=== PATIENT | female | born 1975 | race Caucasian/White ===

== ENCOUNTER 2021-02-12 15:14 | Emergency (ER) | payer OTHER, SELFPAY ==
--- NOTE | ~2021-02-12 | CT_ITS ---
EXAMINATION: CT abdomen pelvis wo con DATE: 02/12/2021 16:41 INDICATION: Abdominal pain. Nausea and vomiting. Lactic acidosis. TECHNIQUE: Computed tomography (CT) of the abdomen and pelvis was performed without intravenous contr ast. Automated exposure control and iterative reconstruction technique were employed. The dose-length product was 1031.38 mGy-cm. COMPARISON: None. FINDINGS: The visualized portions of the lung bases demonstrate minimal atelectasis. No pleural effus ion. The heart size is normal. No pericardial effusion. There is a large sliding hiatal hernia. There is diffuse hepatic steatosis. There are changes of cholecystectomy. There is borderline splenomegaly , likely secondary to obesity. The pancreas, adrenal glands, and kidneys are normal. There is no urol ithiasis. There is diverticulosis of the colon without evidence of diverticulitis. The appendix is no rmal. There are no pathologically enlarged lymph nodes. There is no free intraperitoneal fluid. There is a right-sided tubal ligation clip. There is a displaced tubal ligation clip near the rectum. Ther e is a right inguinal hernia containing fat. There is severe lower lumbar spondylosis. IMPRESSION: 1. Diffuse hepatic steatosis. 2. Large sliding hiatal hernia. 3. Right inguinal hernia containing fat. Reviewed, dictated and finalized at location A.
--- NOTE | ~2021-02-12 | CT_ITS ---
EXAMINATION: CT abdomen pelvis w con DATE: 02/12/2021 18:54 INDICATION: Abdominal pain. TECHNIQUE: Computed tomography (CT) of the abdomen and pelvis was performed with 100 mL Omnipaque 350 intravenous contrast. Automated exposure control and iterative reconstruction technique were employe d. The dose-length product was 1057.36 mGy-cm. COMPARISON: CT abdomen and pelvis 4:32 PM FINDINGS: The visualized portions of the lung bases demonstrate minimal atelectasis. No pleural effus ion. The heart size is normal. No pericardial effusion. There is a large sliding hiatal hernia. There is diffuse low-attenuation in the liver. There are changes of cholecystectomy. There is a 7 mm low-a ttenuation lesion in the spleen, likely benign. The pancreas and adrenal glands are normal. Right kid vito demonstrates a striated nephrogram, consistent with pyelonephritis. There are cysts in left kidne y measuring up to 5 mm. There is a right tubal ligation clip in expected position. The left tubal lig ation clip is displaced. There is diverticulosis of the colon without evidence of diverticulitis. The appendix is normal. There is a splenorenal portacaval shunt. There is thrombus in left ovarian vein, which is expanded. There is a right inguinal hernia containing fat. There is trace ascites in the hi atal hernia. There are no pathologically enlarged lymph nodes. There is severe lower lumbar spondylos is. IMPRESSION: 1. Right-sided pyelonephritis. 2. Acute thrombosis of left ovarian vein. 3. Diffuse low attenuation in the liver, likely steatosis. 4. Splenorenal portacaval shunt, consistent with portal venous hypertension. 5. Large sliding hiatal hernia. Reviewed, dictated and finalized at location A.
[2021-02-12 15:14] VITALS: BP 96/68; PULSE 92; RESP 20; TEMP 36.3; O2SAT 100
--- NOTE | 2021-02-12 15:40 | ED.GENADULT ---
HPI - General Adult General Chief complaint: Nausea/Vomiting/Diarrhea Stated complaint: AMB Source: patient and EMS Mode of arrival: ambulatory Limitations: no limitations History of Present Illness HPI narrative: Elma is a 45F with a pmh of anxiety/depression, asthma and a previous cholecystectomy that presented to the ED via EMS with abdominal pain. She woke up with diffuse cramping abdominal pain and nausea. She has had many episodes of non-bilious non-bloody vomiting. She has not had a BM for 2 days when she is usually very regular. She reports a low grade fever of 99. She denies KONG, CP, SOB, diarrhea and syncope. Per EMS she was lying on her front porch. Related Data Home Medications Medication Instructions Recorded Confirmed albuterol sulfate 2 puff INHALATION PRN 02/12/21 02/12/21 omeprazole 20 mg PO DAILY 02/12/21 02/12/21 sertraline 50 mg PO DAILY 02/12/21 02/12/21 trazodone 100 mg PO HS 02/12/21 02/12/21 Allergies Allergy/AdvReac Type Severity Reaction Status Date / Time Penicillins Allergy Unknown Verified 02/12/21 15:24 Sulfa (Sulfonamide Allergy Unknown Verified 02/12/21 15:24 Antibiotics) Review of Systems Constitutional: Constitutional: Reports fever(s) and Reports weakness Eyes: Eyes: Reports no additional eye complaints ENT: Reports system reviewed and no additional complaints, except as documented Cardiovascular: Cardiovascular: Reports no additional cardiovascular complaints Respiratory: Respiratory: Reports no additional respiratory complaints Gastrointestinal: Gastrointestinal: Reports as per HPI Genitourinary: Genitourinary: Reports no additional female genitourinary complaints, Denies hematuria and Denies dysuria Musculoskeletal: Musculoskeletal: Reports no additional musculoskeletal complaints Integumentary/Breasts: Skin/Breast: Reports system reviewed and no additional complaints, except as docu Neurologic: Reports system reviewed and no additional complaints, except as documented Psychiatric: Psychiatric: Reports no additional psychiatric complaints Endocrine: Endocrine: Reports no additional endocrine complaints Hematologic/Lymphatic: Hematologic/Lymphatic: Reports no additional hematologic/lymphatic complaints Allergic/Immunologic: Allergic/Immunologic: Reports no additional allergic/immunologic complaints Exam Const: General: alert Orientation/consciousness: patient oriented x3 Limitations: No altered mental status Other: In mild distress curled up in the position HENMT: Head: normal to inspection Other: atraumatic Eyes: Conjunctivae: conjunctivae normal Pupils: Equal, round and reactive pupils present Neck: Neck: normal visual inspection Chest: Chest palpation & inspection: normal inspection of the chest Resp: Effort & Inspection: normal respiratory effort, not labored and no retractions Auscultation: clear to auscultation bilaterally Cardio: Rate: regular rate Rhythm: regular rhythm Heart sounds: no murmurs GI: Other: Diffusely TTP, +obturator and +psoas sign. No rebound tenderness. No guarding. Negative Bush sign. Slow bowel sounds : General: Yes no CVA tenderness Back/Spine/Pelvis: Back: no CVA tenderness Skin: General skin exam: normal color Rashes: no rashes Other: Multiple linear scars on the left wrist Neuro: General: patient oriented x3, moves all extremities and CN's II-XI intact bilaterally Extrem: General: normal to inspection Psych: Appearance: disheveled Affect: Anxious affect present Course Course Emergency Course: Elma was evaluated. Ordered labs, CT, zofran, fluids and fentanyl for pain. Labs were very concerning with a slight leukocytosis at 12.5, significant anemia at 8.2, KESHAV with Cr. of 1.97, CRP of >25, AST of 128 and Bilirubin of 2.0, and lactic acid of 7.3. EXAMINATION: CT abdomen pelvis wo con DATE: 02/12/2021 16:41 INDICATION: Abdominal pain. Nausea and vomiting. Lactic acidosis. TECHNIQUE: Co
[2021-02-12] MEDS: ONDANSETRON INJ 4 MG/2 ML VIAL IV PUSH (15:44)
[2021-02-12] MEDS: LACTATED RINGERS 1,000 ML 999 ML IV CONT ×3 (15:44→20:00)
[2021-02-12] MEDS: fentaNYL CITRATE INJ (*CRX) 100 MCG/2 ML VIAL 25 MCG IV PUSH (15:46)
[2021-02-12 15:55] LABS: Hemoglobin 8.2 g/dL (12.0-15.0); Immature Platelet Fraction Pct 8.7 % (1.0-7.0); Mean Corpuscular HGB Conc 28.3 g/dL (32.0-36.0); Mean Corpuscular Hemoglobin 21.4 pg (27.0-31.0); Mean Corpuscular Volume 75.5 fL (78.0-102.0); Platelet Count Result 97 K/mm3 (150-420); Red Blood Count 3.84 M/mm3 (4.20-5.40); Red Cell Distribution Width 21.3 % (11.6-14.4); White Blood Count 12.5 K/mm3 (4.8-10.8)
[2021-02-12 16:00] LABS: INR 1.3; Prothrombin Time 13.9 Seconds (9.50-12.10)
[2021-02-12 16:07] LABS: Lactic Acid Reflex 7.3 mmol/L (0.4-2.0)
[2021-02-12 16:12] LABS: Alanine Aminotransferase 57 U/L (14-59); Albumin Level 2.5 g/dL (3.4-5.0); Alkaline Phosphatase 110 U/L (46-116); Anion Gap 18 mmol/L (8-16); Aspartate Amino Transferase 128 U/L (15-37); Blood Urea Nitrogen 38 mg/dL (7-18); Calcium 8.8 mg/dL (8.5-10.1); Carbon Dioxide 19 mmol/L (21-32); Chloride 99 mmol/L (98-108); Estimated CRCL calculation 34 ml/min; Estimated Glomerular Filt Rate 27; Glucose 155 mg/dL (70-99); Lipase 18 U/L (73-393); NT Pro B Type Natriuretic Pept 462 pg/mL (0-125); Osmolality Calculated 294 mOsm/kg (285-295); Potassium 3.2 mmol/L (3.5-5.1); Sodium 136 mmol/L (136-145); Total Protein 5.9 g/dL (6.4-8.2); Troponin I < 4.0 ng/L (0.00-60.4)
[2021-02-12 16:14] LABS: Band Neutrophils Percent 7 % (0-6); Neutrophils Absolute Manual 11.12 K/mm3 (1.7-7.2); Neutrophils Percent Manual 82 % (46-73); Total Cells Counted 100
[2021-02-12 16:15] LABS: Basophils Percent Manual 0 % (0-1); Eosinophils Percent Manual 0 % (1-6); Hypochromasia 2+ (NORMAL); Lymphocytes Absolute Manual 0.37 K/mm3 (1.1-4.5); Lymphocytes Percent Manual 3 % (18-44); Monocytes Percent Manual 8 % (3-9); Platelet Estimate Decreased (Adequate)
[2021-02-12 16:20] LABS: CRP > 25.0 mg/dL (0.0-0.9)
[2021-02-12] MEDS: fentaNYL CITRATE INJ (*CRX) 100 MCG/2 ML VIAL 50 MCG IV PUSH ×2 (16:31→20:00)
[2021-02-12 16:52] LABS: Add Urine Microscopic? YES; Appearance Urine Clear (Clear); Bilirubin Urine Negative (Negative); Blood Urine Negative (Negative); Color Urine Yellow (Yellow); Glucose Urine UA Negative (Negative); Ketones Urine Trace (Negative); Leukocyte Esterase Ur 1+ (Negative); Nitrate Urine Negative (Negative); Protein Urine 1+ (Negative); pH Urine 5.5 (5.0-8.0)
[2021-02-12 16:58] LABS: Bacteria Urine 1+ /hpf; RBC Urine 0-2 /hpf (0-2); Squamous Epithelial Cell Urine Moderate /hpf (Few); WBC Urine 31-50 /hpf (0-3)
[2021-02-12 17:00] LABS: Amphetamine Screen Urine Negative (Negative); Barbiturate Screen Urine Negative (Negative); Benzodiazepines Screen Urine Negative (Negative); Cannabinoid Screen Urine Negative (Negative); Cocaine Screen Urine Negative (Negative); Methadone Screen Urine Negative (Negative); Opiate Screen Urine Negative (Negative); Phencyclidine Screen Urine Negative (Negative)
[2021-02-12 17:49] LABS: Anion Gap 15 mmol/L (8-16); Blood Urea Nitrogen 33 mg/dL (7-18); Calcium 8.5 mg/dL (8.5-10.1); Carbon Dioxide 21 mmol/L (21-32); Chloride 101 mmol/L (98-108); Estimated CRCL calculation 39 ml/min; Estimated Glomerular Filt Rate 32; Glucose 115 mg/dL (70-99); Osmolality Calculated 292 mOsm/kg (285-295); Potassium 3.2 mmol/L (3.5-5.1); Sodium 137 mmol/L (136-145)
[2021-02-12 17:59] LABS: Lactic Acid 6.1 mmol/L (0.4-2.0)
[2021-02-12] MEDS: HEPARIN SOD/D5W 100 UNITS/ML 25,000 UNITS/250 ML BAG 15 UNITS IV CONT (20:00)
[2021-02-12 20:36] VITALS: BP 110/58; PULSE 94; RESP 20; TEMP 36.9; O2SAT 94
[2021-02-12 20:59] LABS: Appearance Urine Clear (Clear); Bilirubin Urine Negative (Negative); Color Urine Yellow (Yellow); Glucose Urine UA Negative (Negative); Ketones Urine Negative (Negative); Leukocyte Esterase Ur Negative LEU/UL (Negative); Nitrate Urine Negative (Negative); Protein Urine 1+ (Negative); Specific Grav Ur <= 1.005 (1.010-1.020); pH Urine 6.5 (5.0-8.0)
[2021-02-12 21:05] LABS: Add Urine Microscopic? YES; Bacteria Urine Trace /hpf; Blood Urine Trace (Negative); RBC Urine 0-2 /hpf (0-2); Squamous Epithelial Cell Urine Rare /hpf (Few)
--- NOTE | 2021-02-12 21:19 | PC.NURSE ---
2105 gbaas here , report to florencio. pt loaded to ems cot. denies nausea and rates pain 3/10 at this time.
== END 2021-02-12 21:15 | disposition short-term general hospital (02) ==
PROVIDERS: Emergency Provider Family Medicine
DX: A41.9 Sepsis, unspecified organism (principal); I82.890 Acute embolism and thrombosis of other specified veins
CPT/HCPCS: 36415; 74176; 74177; 80048; 80053; 80307; 81001; 83605; 83690; 83880; 84484; 85025; 85055; 85610; 86140; 87040; 87077; 87186; 96361; 96365; 96367; 96375; 96376; 99285; J1644; J2405; J2543; J3010; J7120; Q9967

== ENCOUNTER 2021-04-03 20:20 | Emergency (ER) | payer OTHER, SELFPAY ==
--- NOTE | 2021-04-03 20:29 | ECG_ITS ---
Measurements Intervals [place] Rate: 138 P: 62 NC: 144 QRS: 55 QRSD: 81 T: 54 QT: 313 QTc: 475 Interpretive Statements SINUS TACHYCARDIA DELAYED PRECORDIAL R/S TRANSITION BORDERLINE ST-T WAVE ABNORMALITY- ANTEROLAT/INF LEADS BASELINE ARTIFACT- I, II, III, AVR, AVL, AVF, V4-V6 ABNORMAL ECG Electronically Signed On 04-04-2021 6:11:49 CDT by Rahul Abraham D.O.
[2021-04-03 20:32] VITALS: BP 140/85; PULSE 144; RESP 20; TEMP 36.7; O2SAT 98
--- NOTE | 2021-04-03 20:44 | ED.PSYCH ---
HPI - Psych General Chief Complaint: Psychiatric Symptoms <Tejinder Lawrence MD - Last Filed: 04/03/21 23:08> Stated Complaint: AMB <Tejinder Lawrence MD - Last Filed: 04/03/21 23:08> Source: patient and EMS <Tejinder Lawrence MD - Last Filed: 04/03/21 23:08> Mode of arrival: EMS <Tejinder Lawrence MD - Last Filed: 04/03/21 23:08> Limitations: no limitations <Tejinder Lawrence MD - Last Filed: 04/03/21 23:08> History of Present Illness HPI Narrative: this is 46-year-old female presents via EMS after she got into an argument with her boyfriend and over the fact that her daughter has been throwing trash in her yd and she was worry about getting evicted from her home, the patient stated that she wanted to kill herself and not certain who called but someone in the family or friend called EMS that brought patient to the emergency department. Patient has a history of asthma, has a history of depression, and did state that she wanted to kill herself but she denies that now and states that she currently does not want to cause self-harm or harm anyone else with no apparent suicide plan. <Tejinder Lawrence MD - Last Filed: 04/03/21 23:08> MD complaint: feels depressed and other ( stated she wanted to kill herself) <Tejinder Lawrence MD - Last Filed: 04/03/21 23:08> Onset (ago): hour(s) <Tejinder Lawrence MD - Last Filed: 04/03/21 23:08> Duration: resolved prior to arrival <Tejinder Lawrence MD - Last Filed: 04/03/21 23:08> History of same: Yes ( as a child according to patient) <Tejinder Lawrence MD - Last Filed: 04/03/21 23:08> Relieving factors: none <Tejinder Lawrence MD - Last Filed: 04/03/21 23:08> Exacerbating factors: none <Tejinder Lawrence MD - Last Filed: 04/03/21 23:08> Context: recent alcohol abuse <Tejinder Lawrence MD - Last Filed: 04/03/21 23:08> Associated psychiatric symptoms: depression <Tejinder Lawrence MD - Last Filed: 04/03/21 23:08> Associated symptoms: denies other symptoms <Tejinder Lawrence MD - Last Filed: 04/03/21 23:08> Treatments prior to arrival: none <Tejinder Lawrence MD - Last Filed: 04/03/21 23:08> If self harm: admits thoughts of self harm <Tejinder Lawrence MD - Last Filed: 04/03/21 23:08> Related Data Home Medications: Home Medications Medication Instructions Recorded Confirmed albuterol sulfate 2 puff INHALATION PRN 02/12/21 04/03/21 omeprazole 20 mg PO DAILY 02/12/21 04/03/21 sertraline 50 mg PO DAILY 02/12/21 04/03/21 trazodone 100 mg PO HS 02/12/21 04/03/21 ferrous sulfate [iron] 325 mg PO DAILY 04/03/21 04/03/21 <Tejinder Lawrence MD - Last Filed: 04/03/21 23:08> Allergies/Adverse Reactions: Allergies Allergy/AdvReac Type Severity Reaction Status Date / Time cyclobenzaprine Allergy Unknown Verified 04/03/21 20:42 [From Flexeril] Penicillins Allergy Unknown Verified 04/03/21 20:42 Sulfa (Sulfonamide Allergy Unknown Verified 04/03/21 20:42 Antibiotics) <Tejinder Lawrence MD - Last Filed: 04/03/21 23:08> Review of Systems Review of Systems: All systems reviewed & are unremarkable except as noted in HPI and below <Tejinder Lawrence MD - Last Filed: 04/03/21 23:08> PMFSH Past Medical History Medical History: Medical History Depression <Tejinder Lawrence MD - Last Filed: 04/03/21 23:08> Social History Social History: Social History Gender identity (if verbalized by the patient): Female <Tejinder Lawrence MD - Last Filed: 04/03/21 23:08> Exam Const: General: no acute distress and alert <Tejinder Lawrence MD - Last Filed: 04/03/21 23:08> Orientation/consciousness: patient oriented x3 <Tejinder Lawrence MD - Last Filed: 04/03/21 23:08> HENMT: Head: normal to inspection <Tejinder Lawrence MD - L
[2021-04-03 20:49] LABS: Hematocrit 37.2 % (35.0-49.0); Hemoglobin 11.2 g/dL (12.0-15.0); Mean Corpuscular HGB Conc 30.1 g/dL (32.0-36.0); Mean Corpuscular Hemoglobin 24.8 pg (27.0-31.0); Mean Corpuscular Volume 82.5 fL (78.0-102.0); Mean Platelet Volume 10.2 fl (9.2-11.8); Platelet Count Result 310 K/mm3 (150-420); Red Blood Count 4.51 M/mm3 (4.20-5.40); Red Cell Distribution Width 18.8 % (11.6-14.4); White Blood Count 6.8 K/mm3 (4.8-10.8)
[2021-04-03 20:50] LABS: Basophils Percent Auto 0.4 % (0.0-1.0); Eosinophils Absolute Auto 0.12 K/mm3 (0.02-0.50); Eosinophils Percent Auto 1.8 % (1.0-6.0); Immature Granulocyte Absolute 0.02 K/mm3 (0.00-0.00); Immature Granulocyte Percent A 0.3 % (0.0-0.0); Lymphocytes Percent Auto 35.3 % (18.0-42.0); Monocytes Absolute Auto 0.64 K/mm3 (0.10-0.90); Monocytes Percent Auto 9.4 % (2.0-11.0); Neutrophils Absolute Auto 3.6 K/mm3 (1.7-7.2); Neutrophils Percent Auto 52.8 % (50.0-70.0)
[2021-04-03 20:51] LABS: Basophils Absolute Auto 0.03 K/mm3 (0.00-0.10)
[2021-04-03 21:41] LABS: Salicylate 3.1 mg/dL (2.8-20.0); Thyroid Stimulating Hormone 1.91 uIU/mL (0.36-3.74)
[2021-04-03 21:44] LABS: Acetaminophen 0 ug/mL (10-30)
[2021-04-03 21:45] LABS: Ethanol 261 mg/dL (0-6)
[2021-04-03 21:46] LABS: Anion Gap 22 mmol/L (8-16); Blood Urea Nitrogen 10 mg/dL (7-18); Calcium 8.8 mg/dL (8.5-10.1); Carbon Dioxide 17 mmol/L (21-32); Chloride 104 mmol/L (98-108); Estimated CRCL calculation 67 ml/min; Estimated Glomerular Filt Rate > 60; Glucose 112 mg/dL (70-99); Osmolality Calculated 296 mOsm/kg (285-295); Potassium 3.4 mmol/L (3.5-5.1); Sodium 143 mmol/L (136-145)
[2021-04-03 21:47] LABS: Amphetamine Screen Urine Negative (Negative); Barbiturate Screen Urine Negative (Negative); Benzodiazepines Screen Urine Negative (Negative); Cocaine Screen Urine Negative (Negative); Methadone Screen Urine Negative (Negative); Opiate Screen Urine Negative (Negative); Phencyclidine Screen Urine Negative (Negative)
[2021-04-03 21:47] LABS: Alanine Aminotransferase 29 U/L (14-59); Albumin Level 3.5 g/dL (3.4-5.0); Alkaline Phosphatase 97 U/L (46-116); Aspartate Amino Transferase 25 U/L (15-37); Bilirubin,Total 0.4 mg/dL (0.00-1.00); Total Protein 7.2 g/dL (6.4-8.2)
[2021-04-03 21:48] LABS: Cannabinoid Screen Urine Negative (Negative)
--- NOTE | 2021-04-03 21:52 | PC.NURSE ---
2109 PT ELOPED FROM ROOM [employer] CALLED AND PT RETURNED TO ROOM AT 2119
[2021-04-03 21:59] LABS: Appearance Urine Clear (Clear); Color Urine Light Yellow (Yellow); Protein Urine 1+ (Negative)
[2021-04-03 22:00] LABS: Bilirubin Urine Negative (Negative); Blood Urine Negative (Negative); Glucose Urine UA Negative (Negative); Ketones Urine Negative (Negative); Nitrate Urine Negative (Negative)
[2021-04-03 22:01] LABS: Add Urine Microscopic? YES; Leukocyte Esterase Ur Negative (Negative); RBC Urine 0-2 /hpf (0-2); Urobilinogen Urine 0.2 mg/dL (0.2-1.0); WBC Urine 0-3 /hpf (0-3)
[2021-04-03 22:02] LABS: Bacteria Urine Trace /hpf; Squamous Epithelial Cell Urine Few /hpf (Few)
--- NOTE | 2021-04-03 23:48 | PC.NURSE ---
3239 NURSE TO NURSE REPORT GIVEN TO CHAN DURAN PT TO GO TO FLOOR FOR ER HOLD LABS TO BE REDRAWN AT 0800
--- NOTE | 2021-04-04 00:05 | ADMGEN ---
Addendum entered by Gale Pelayo LPN 04/04/21 00:22: Room cleared and safety risk items removed. Original Note: This patient, Elma Foote, was admitted to [facility] at 0000 for suicidal ideation. Patient oriented to hospital policies and general routines including ID bracelet, bed and alarms, visiting hours, pain management, procedures, bathroom and other care routines, personal items, smoking policy, room service/diet, and visiting hours. Patient states no complaints of pain or discomfort,states she is just tired. Pt states she has calmed down and does not report suicidal thoughts at this time. Information on how to activate the Rapid Response Team has been discussed. Patient are encouraged to report perceived risks to care and to ask questions if they do not understand what they are told or what they should do.
[2021-04-04 00:21] VITALS: BP 132/78; PULSE 100; RESP 20; TEMP 36.8; O2SAT 99
--- NOTE | 2021-04-04 04:42 | PC.NURSE ---
Pt called and said she felt shaky and nervous and wanted to know if she could have any medication to relieve it. Dr. Lawrence notified and new orders were received and noted.
--- NOTE | 2021-04-04 04:50 | PC.NURSE ---
#22 IV started in L Hand, patent and flushes with ease. PT tolerated well, no s/s infiltrate. No c/o pain or discomfort. Saline lock.
[2021-04-04] MEDS: LORazepam INJ (*CRX) 2 MG/ML VIAL 0.5 MG IV PUSH ×2 (04:54→08:26)
--- NOTE | 2021-04-04 04:56 | PC.NURSE ---
RENEE Thornton at bedside to administer IV push Ativan PRN.
[2021-04-04 07:30] VITALS: BP 114/59; PULSE 82; RESP 18; TEMP 36.8; O2SAT 99
--- NOTE | 2021-04-04 07:30 | PC.NURSE ---
Patient denying any suicidal ideations at this time. States she thinks she was just drunk and regrets last night.
[2021-04-04 08:36] LABS: Ethanol < 3 mg/dL (0-6)
--- NOTE | 2021-04-04 08:55 | PC.NURSE ---
Alondra yates contacted for evaluation
--- NOTE | 2021-04-04 10:19 | PC.NURSE ---
Loxley trudy here to evaluate patient.
[2021-04-04 11:15] VITALS: BP 114/59; PULSE 82; RESP 18; TEMP 36.8; O2SAT 99
== END 2021-04-04 11:15 | disposition home or self-care (01) ==
LOC: CHSED 23:08 → CHS2ND 04-04 06:25
PROVIDERS: Emergency Provider Emergency Medicine
DX: F32.9 Major depressive disorder, single episode, unspecified (principal); R45.851 Suicidal ideations; F10.129 Alcohol abuse with intoxication, unspecified
CPT/HCPCS: 36415; 80053; 80307; 81001; 84443; 85025; 93005; 96374; 96376; 99284; J2060